=== PATIENT | female | born 1990 | race Caucasian/White ===

== ENCOUNTER 2018-08-19 14:35 | Inpatient (IN) | payer OTHER ==
[2018-08-19] MEDS ORDERED: Lactated Ringer's 1,000 ML IV ONE (16:12)
[2018-08-19 16:50] LABS: BASO % 0.3 % (0.0-2.0); EOS # 0.1 K/uL (0.0-0.7); EOS % 1.7 % (0.0-4.0); HEMOGLOBIN 8.4 g/dL (11.0-16.0); LYMPH # 1.9 K/uL (1.0-4.3); LYMPH % 24.3 % (20.0-40.0); MEAN CELL VOLUME 62.1 fL (81.0-99.0); MEAN CORPUSCULAR HEMOGLOBIN 19.4 pg (27.0-31.0); MEAN CORPUSCULAR HGB CONC 31.3 g/dL (33.0-37.0); MEAN PLATELET VOLUME 7.9 fL (7.2-11.7); MONO # 0.7 K/uL (0.0-0.8); MONO % 8.7 % (0.0-10.0); NEUT # 5.2 K/uL (1.8-7.0); NRBC % 0.1 % (0.0-2.0); RBC 4.32 Mil/uL (3.80-5.20); RED CELL DISTRIBUTION WIDTH 16.6 % (11.5-14.5)
[2018-08-19 16:54] LABS: SQUAMOUS EPITHIAL 1 /hpf (0-5); URINE BACTERIA MOD (<OCC); URINE BILIRUBIN NEGATIVE (NEGATIVE); URINE BLOOD NEGATIVE (NEGATIVE); URINE CALCIUM OXALATE CRYSTALS RARE /hpf (<OCC); URINE CLARITY Clear (Clear); URINE COLOR Straw (YELLOW); URINE GLUCOSE (UA) NORMAL (Normal); URINE LEUKOCYTE ESTERASE 2+ Leu/uL (Negative); URINE PROTEIN NEGATIVE (NEGATIVE); URINE UROBILINOGEN NORMAL mg/dL (0.2-1.0)
[2018-08-19 17:06] LABS: ALB/GLOB RATIO 1.1 (1.0-2.1); ALBUMIN 3.7 g/dL (3.5-5.0); ALT/SGPT 21 U/L (9-52); AST/SGOT 25 U/L (14-36); BLOOD UREA NITROGEN 4 mg/dL (7-17); CALCIUM 9.7 mg/dl (8.6-10.4); GFR NON-AFRICAN AMERICAN > 60
--- NOTE | 2018-08-19 19:26 | OBHP ---
Datetime: 08/19/2018 16:10 IP Adm Impression: Term, intrauterine ; No Active Labor IP Chief Complaint Other: Low amniotic fluid index IP Admit Plan: Admit to unit; Initiate labor induction protocol Admit Comment, IP Provider: BRIGIDO "low water level" HPI: 28 year old at 40 weeks by ultrasound referred by private provider for induction of l abor 2/2 low amniotic fluid index. She states she was seen by Dr. Ace at 9am this morning for a ro utine checkup and was told she had "low water level." She currently feels no pain or contractions. Sh e has not had any vaginal bleeding. She has not had any loss of fluid. She continues to feel mo vement. She recently came here from [facility] in June, and as per her, was receiving care i [facility] until June. She has been following with Dr. Ace since June. She admits to experienc ing daily headaches, however currently denies headache. She states she does not take medications and has not sought medical attention for her headaches. Patient speaks Tajik. History obtained by patient' s female cousin at bedside. Patient's sister to arrive after 6pm. PObhx: . 1st : 2013, fulll term at 39 weeks, baby boy at 9lbs in [facility], no complications. 2nd : 2015, full term at 39 weeks, baby boy at 7lbs in [place], no complications. GYNHx: Age of menarche 15, every 22 days, lasts 7 days. hx of bilateral ovarian cysts, no history of fibroids. no hx of STIs. Last Pap smear 08/08 normal. Allergies: NKDA Medications: vitamins daily starting August, Iron unknown dose once daily, Vitamin D onc e weekly PMHx: anemia PSHx: none Social hx: Denies alcohol, tobacco or illicit drug use. , lives in [place]. She li ves with her and 2 children in [place]. Lives currently with her sister, recently arrived in the for the delivery. Homemaker. Family hx: Mother age 54, healthy. Father aged 75, healthy. No history of cancer ROS: (+) daily headaches. denies fever, chills, chest pain, shortness of breath, abdominal pain, n ausea, vomiting, diarrhea, constipation, dysuria, leg swelling. Assessment/plan 1. Admit to Labor_Delivery 2. Diet: keep NPO 3. IVF: LR @ 125cc/hr 4. FHT Category I, continue monitoring 5. GBS negative Oriana Apple, PGY1 Case discussed with Dr. Mckeon Attending Note: patient seen and evaluated by me with the Resident. I agree with the above as docu mented. Case D/W Dr. Ace: examination in office noted for closed cervix. For cervical ripening w ith cervidil at 2000 hours. Pelvic Type - PN: Adequate Extremities - PN: Normal Abdomen - PN: Normal Back - PN: Normal Breast - PN: Not Done Lungs - PN: Normal Heart - PN: Normal Thyroid - PN: Normal Neurologic - PN: Normal HEENT - PN: Normal General - PN: Normal FHR - Baseline A Provider: 140 Comments, ACOG Physical Exam: Gravid abdomen. Fundal height at 38cm. IP Hx Assessment: The History has been Reviewed and is Current EGA AdmitDate IP: 40.2 Vital Signs Provider: Reviewed; Within Normal Limits IP Indication for Induction: Other IP Indication for Induction Oth: Low JOSELYN IP Chief Complaint: Other NICHD Variability Prov Fetus A: Moderate 6-25bpm NICHD Accel Fetus A IP Provider: 10X10 FHR Category Provider Fetus A: Category I NICHD Decel Fetus A IP Provider: None Genitourinary Exam: Normal DTRs - PN: Normal
[2018-08-19] MEDS: Lactated Ringer's 1,000 ML IV SCH (20:57)
[2018-08-19] MEDS ORDERED: DiphenhydrAMINE 50 mg/ml Inj IVP STA (22:31)
[2018-08-19] MEDS ORDERED: Nalbuphine HCL 10 mg/ml Ampule IVP ONE (22:31)
--- NOTE | 2018-08-19 23:53 | OBPN ---
Datetime: 08/19/2018 23:43 IP Progress Plan Other: Cervical ripening IP Progress Plan: Continue present management Contraction Comments Provider: 4-7 minutes IP Progress Note Comment: Patient examined at 2049 hours: reported mild LLQ pain Cervical exam: as above. Cervidil inserted in posterior vaginal fornix Assessment: 28 y.o lP2, 40w 2d, for cervical ripening - low JOSELYN. Category 1 traicng. GBS (-). Mode rate anemia. Clinically stable. Plan: 1) As above 2) Pain medications, upon request 3) Anticipate vaginal delivery - as per Dr. Ace Dilatation, Provider: 4 Effacement, Provider: 40 Station, Provider: -3 Datetime: 08/19/2018 16:10 FHR - Baseline A Provider: 140 Vital Signs Provider: Reviewed; Within Normal Limits NICHD Accel Fetus A IP Provider: 10X10 FHR Category Provider Fetus A: Category I NICHD Variability Prov Fetus A: Moderate 6-25bpm NICHD Decel Fetus A IP Provider: None
[2018-08-20] MEDS ORDERED: Nalbuphine HCL 10 mg/ml Ampule ONE (02:25)
[2018-08-20] MEDS ORDERED: DiphenhydrAMINE 50 mg/ml Inj ONE (02:26)
[2018-08-20] MEDS: Lactated Ringer's 1,000 ML IV SCH (02:29)
--- NOTE | 2018-08-20 05:16 | OBADHP ---
Datetime: 08/20/2018 05:15 Contraction Comments Provider: q1-5 Vital Signs Provider: Reviewed; Within Normal Limits Dilatation, Provider: 3 Effacement, Provider: 70 Station, Provider: -2 Datetime: 08/19/2018 16:10 EGA AdmitDate IP: 40.2
[2018-08-20] MEDS ORDERED: Oxytocin 30 UNIT 30 UNITS/500 ML BAG IV ONE ×2 (05:18→05:29)
--- NOTE | 2018-08-20 05:19 | OBPN ---
Datetime: 08/20/2018 05:15 IP Procedures: Artificial ROM; Sterile Vag Exam IP Progress Plan: Continue present management Contraction Comments Provider: q1-5 FHR - Baseline A Provider: 120 IP Progress Note Comment: pt was examined at bed side ve 2-3/70/-2 arom clear start pitocin anticipate Vital Signs Provider: Reviewed; Within Normal Limits NICHD Accel Fetus A IP Provider: 15X15 FHR Category Provider Fetus A: Category I NICHD Variability Prov Fetus A: Moderate 6-25bpm Dilatation, Provider: 3 Effacement, Provider: 70 Station, Provider: -2
[2018-08-20] MEDS ORDERED: Benzocaine/Menthol 20%-0.5% Topical Spray (60 ml) TOP PRN (07:38)
[2018-08-20] MEDS ORDERED: Oxycodone/Acetaminophen 5/325 mg Tab PO PRN ×2 (07:38)
--- NOTE | 2018-08-20 07:38 | OBDS ---
MATERNAL INFORMATION Provider Comments: dr beach baby deliverd in baby girl. 9/9 end clean no com LABOR SUMMARY EDC: 08/17/2018 00:00 No. Babies in Womb: 1 Attempted: No Labor Anesthesia: IV Sedation LABOR INFORMATION Reason for Induction: Oligohydramnios Onset of Labor: 08/20/2018 05:00 Complete Dilatation: 08/20/2018 07:22 Cervical Ripening Agents: Cervidil Oxytocin: Induction Group B Beta Strep: Negative (Annotations: 08/04/18) Antibiotics # of Doses: 0 Steroids Given: None Reason Steroids Not Administered: Not Applicable MEMBRANES Membranes Rupture Method: Artificial Rupture of Membranes: 08/20/2018 05:10 Length of Rupture (hrs): 2.35 Amniotic Fluid Color: Clear Amniotic Fluid Amount: Large Amniotic Fluid Odor: Normal STAGES OF LABOR Stage 1 hrs: 2 Stage 1 min: 22 Stage 2 hrs: 0 Stage 2 min: 9 VAGINAL DELIVERY Episiotomy: None Laceration Extension: N/A Laceration Type: None Sponge Count Correct: N/A Sharps Count Correct: N/A BABY A INFORMATION Delivery Date/Time: 08/20/2018 07:31 Method of Delivery: Vaginal Born in Route : No : N/A Forceps: N/A Vacuum Extraction: N/A Shoulder Dystocia : No SHOULDER DYSTOCIA BABY A Infant Delivery Date/Time: 08/20/2018 07:31 PRESENTATION/POSITION BABY A Presentation: Cephalic Cephalic Presentation: Vertex Vertex Position: Left Occipital Anterior Breech Presentation: N/A PLACENTA INFORMATION BABY A Placenta Method of Delivery: Spontaneous Placenta Status: Delivered INFORMATION BABY A Gestational Age at Delivery: 40.0 Gestational Status: Term Outcome : Liveborn Condition : Stable Sex: Female IDENTIFICATION/MEDS BABY A ID Band Number: [id number] Sensor Number: [id number] CORD INFORMATION BABY A Nuchal Cord : Around Neck x1, Loose Cord Blood Taken: Yes Suction: Mouth; Nose
[2018-08-21 11:23] LABS: BASO % 0.4 % (0.0-2.0); EOS # 0.3 K/uL (0.0-0.7); EOS % 2.4 % (0.0-4.0); HEMOGLOBIN 7.7 g/dL (11.0-16.0); LYMPH # 2.7 K/uL (1.0-4.3); LYMPH % 23.9 % (20.0-40.0); MEAN CELL VOLUME 61.9 fL (81.0-99.0); MEAN CORPUSCULAR HEMOGLOBIN 19.3 pg (27.0-31.0); MEAN CORPUSCULAR HGB CONC 31.1 g/dL (33.0-37.0); MEAN PLATELET VOLUME 7.7 fL (7.2-11.7); MONO # 0.9 K/uL (0.0-0.8); MONO % 8.1 % (0.0-10.0); NEUT # 7.4 K/uL (1.8-7.0); NEUT % 65.2 % (50.0-75.0); RBC 3.99 Mil/uL (3.80-5.20); RED CELL DISTRIBUTION WIDTH 16.5 % (11.5-14.5); WHITE BLOOD COUNT 11.4 K/uL (4.8-10.8)
[2018-08-22 07:13] LABS: BASO # 0.1 K/uL (0.0-0.2); BASO % 0.5 % (0.0-2.0); EOS # 0.4 K/uL (0.0-0.7); EOS % 3.1 % (0.0-4.0); HEMOGLOBIN 8.7 g/dL (11.0-16.0); LYMPH # 3.5 K/uL (1.0-4.3); LYMPH % 26.4 % (20.0-40.0); MEAN CELL VOLUME 62.3 fL (81.0-99.0); MEAN CORPUSCULAR HEMOGLOBIN 19.7 pg (27.0-31.0); MEAN CORPUSCULAR HGB CONC 31.6 g/dL (33.0-37.0); MEAN PLATELET VOLUME 7.6 fL (7.2-11.7); MONO # 0.9 K/uL (0.0-0.8); MONO % 6.6 % (0.0-10.0); NEUT # 8.5 K/uL (1.8-7.0); NEUT % 63.4 % (50.0-75.0); NRBC % 0.1 % (0.0-2.0); RBC 4.43 Mil/uL (3.80-5.20); RED CELL DISTRIBUTION WIDTH 16.7 % (11.5-14.5); WHITE BLOOD COUNT 13.3 K/uL (4.8-10.8)
[2018-08-22] MEDS ORDERED: Tdap Vaccine 0.5 ml Vial (10-64 yrs) IM ONE (08:09)
[2018-08-22 09:10] VITALS: RESP 18
--- NOTE | 2018-08-22 09:28 | OBPPN ---
Datetime: 08/22/2018 08:39 PP Pain Prov: Within normal limits PP Nausea Prov: Denies PP Flatus Prov: Yes PP BM Prov: Yes PP Breasts Prov: Not Done PP Heart Prov: Normal PP Lungs Prov: Normal PP Abdomen/Uterus Prov: Normal PP Lochia Prov: Normal PP Vulva/Perineum Prov: Normal PP CVA Tenderness Prov: Normal PP Extremities Prov: Normal PP Comments Phys Exam Prov: Abdomen soft. Fundus firm at the level of umbilicus. PP Impression Prov: Normal progression PP Plan Prov: Discharge PP Progress Note Prov: PPD2 Patient seen and examined at bedside. Patient states her pain is well controlled. She is toleratin g regular diet. She is breast feeding. She describes moderate lochia. She has had flatus and bowel mo vement. She denies nausea, vomiting. She denies calf pain, chest pain, shortness of breath, fevers, c hills. A/P 28 year old at 40 weeks s/p with PPD2 1. Vitals stable 2. AM labs H/H 8.7/27.6, script for Iron provided 3. Encourage breast feeding, ambulating 4. Follow up with Dr. Ace in 3 weeks. 5. Tdap prior to discharge. 6. Script for Motrin provided Case discussed with Dr. Malka Apple, PGY1 IP PP Procedures: None Vital Signs Provider PP: Reviewed; Within Normal Limits
[2018-08-22] MEDS ORDERED: Influenza Vaccine 60 MCG/0.5 ML SYR (3 yr & up) IM ONE (14:37)
[2018-08-22 18:46] VITALS: BP 102/65; PULSE 88; TEMP 97.4; O2SAT 99
== END 2018-08-22 13:15 | disposition home or self-care (01) | DRG 373 ==
LOC: C.EROB 14:35 → C.4D 16:02 → C.4M 08-20 09:00
PROVIDERS: ADMIT Obstetrics & Gynecology; ATTEND Obstetrics & Gynecology
PROC: 10E0XZZ Delivery of Products of Conception, External Approach (ICD-10-PCS; principal; 2018-08-20)
DX: O69.81X0 Labor and delivery complicated by cord around neck, without compression, not applicable or unspecified (principal); O99.02 Anemia complicating childbirth; Z3A.40 40 weeks gestation of pregnancy; O48.0 Post-term pregnancy; Z37.0 Single live birth